=== PATIENT | male | born 1960 | race Caucasian/White ===

== ENCOUNTER 2019-09-03 08:01 | Inpatient (IN) ==
[2019-09-03] MEDS ORDERED: METOPROLOL TARTRATE 5 MG/5 ML VIAL IV STA ×3 (08:20→09:05)
[2019-09-03] MEDS ORDERED: ASPIRIN CHEW 81 MG TABLET PO STA (08:20)
[2019-09-03 08:26] LABS: Basophils % 0.4 % (0.0-0.8); Eosinophils # 0.2 10*3/uL (0.0-0.87); Eosinophils % 1.6 % (0.00-10.9); Hematocrit 51.9 VOL% (42.0-52.0); Hemoglobin 17.7 GM/DL (14.0-18.0); Immature Granulocytes % 0.5 %; Immature Granulocytes Absolute 0.05 #; Lymphocytes # 2.8 10*3/uL (1.4-4.0); Lymphocytes % 29.2 % (21.2-54.2); Mean Corpuscular HGB Conc 34.1 GM/DL (32-36); Mean Corpuscular Volume 88.6 FL (87-102); Mean Platelet Volume 10.5 FL (9.6-12.0); Monocytes % 8.7 % (1.7-12.7); Neutrophils % 59.6 % (38.7-73.9); Platelet Count 274 T/CUMM (130-400); Red Blood Count 5.86 MC/CUMM (3.8-5.5); Red Cell Distribution Width 11.9 % (9.3-17.3); White Blood Count 9.6 T/CUMM (4-12)
[2019-09-03] MEDS ORDERED: ENOXAPARIN 100 MG/ML SYRINGE SUBCUT STA (09:00)
[2019-09-03] MEDS ORDERED: NITROGLYCERIN 2% OINT 1 INCH/GM PACK TOP STA (09:00)
[2019-09-03 09:40] LABS: Bilirubin,Total 0.7 MG/DL (0.2-1.0); Calcium 9.4 MG/DL (8.5-10.1); Osmolality,Calculated 282.3 MOS/KG (273-304); Total Protein 7.6 G/DL (6.4-8.3)
[2019-09-03] MEDS ORDERED: LABETALOL 20 MG/4 ML SYRINGE IV ONE ×2 (09:54→10:42)
[2019-09-03] MEDS ORDERED: LABETALOL 20 MG/4 ML SYRINGE IV STA (09:55)
[2019-09-03] MEDS ORDERED: DIAZEPAM 5 MG TABLET PO ONE (10:09)
[2019-09-03] MEDS ORDERED: POTASSIUM CHLORIDE RIDER 10 MEQ in PREMIX 1 EACH IV PRN (10:09)
[2019-09-03] MEDS ORDERED: MAGNESIUM SULF RIDER 2 GM in PREMIX 1 EACH IV PRN (10:09)
[2019-09-03] MEDS ORDERED: diphenhydrAMINE CAP 25 MG CAPSULE PO ONE (10:09)
[2019-09-03] MEDS ORDERED: MIDAZOLAM 2 MG/2 ML VIAL ONE (10:34)
[2019-09-03] MEDS ORDERED: HYDROmorphone 2 MG/1 ML VIAL ONE (10:34)
[2019-09-03] MEDS ORDERED: diphenhydrAMINE 50 MG/1 ML VIAL ONE (10:40)
[2019-09-03 10:42] LABS: Apearance,Urine CLEAR (Clear); Bilirubin,Urine Negative (Negative); Blood, Urine Negative (Negative); Glucose,Urine (UA) Negative (Negative); Ketones,Urine 20 mg/dL (Negative); Mucus,Urine Occasional /LPF (Occasional); Nitrite,Urine Negative (Negative); Protein,Urine Negative; RBC,Urine 2 /HPF (0-4); Squamous Epithelial Cell,Urine Occasional /HPF (0-10); Urine Color Yellow (Yellow); Urine Specific Gravity 1.021 (1.001-1.035); Urine Urobilinogen < 2.0 EU/DL (0.2-1.0); WBC,Urine 9 /HPF (0-6)
[2019-09-03] MEDS ORDERED: ZALEPLON 5 MG CAPSULE PO PRN (11:22)
[2019-09-03] MEDS ORDERED: NITROGLYCERIN SL 0.4 MG TABLET SL PRN (11:22)
[2019-09-03] MEDS ORDERED: ONDANSETRON 4 MG/2 ML VIAL IV PRN (11:22)
[2019-09-03] MEDS: SODIUM CHLORIDE 0.9% 1,000 ML IV SCH ×2 (12:06→19:47)
[2019-09-03] MEDS: METOPROLOL TARTRATE 50 MG TABLET PO SCH ×2 (12:10→21:37)
[2019-09-03] MEDS: PANTOPRAZOLE 40 MG TABLET PO SCH (12:10)
[2019-09-03] MEDS: ASPIRIN EC 81 MG TABLET PO SCH (12:10)
[2019-09-03 13:06] LABS: CKMB % 4.2 %
[2019-09-03 13:08] LABS: Troponin I 0.848 NG/ML (0.00-0.045)
[2019-09-03 19:52] LABS: CKMB % 4.9 %
[2019-09-03 19:54] LABS: Troponin I 2.15 NG/ML (0.00-0.045)
[2019-09-03] MEDS: ROSUVASTATIN 20 MG TABLET PO SCH (21:37)
[2019-09-04] MEDS: SODIUM CHLORIDE 0.9% 1,000 ML IV SCH ×2 (03:42→12:34)
[2019-09-04 04:44] LABS: Osmolality,Calculated 281.1 MOS/KG (273-304)
[2019-09-04 04:48] LABS: CKMB % 4.4 %; Risk Ratio 6.58; VLDL CHOLESTEROL 25.4 MG/DL
[2019-09-04 04:51] LABS: Troponin I 2.33 NG/ML (0.00-0.045)
[2019-09-04] MEDS: PANTOPRAZOLE 40 MG TABLET PO SCH (08:37)
[2019-09-04] MEDS: METOPROLOL TARTRATE 50 MG TABLET PO SCH ×2 (08:37→21:40)
[2019-09-04] MEDS: ASPIRIN EC 81 MG TABLET PO SCH (08:38)
[2019-09-04] MEDS ORDERED: GLUCAGON 1 MG VIAL IM PRN (08:45)
[2019-09-04] MEDS ORDERED: CEFUROXIME INJ 1,500 MG in SYRINGE 1 EACH IV ONE (08:45)
[2019-09-04] MEDS ORDERED: DEXTROSE 10% 250 ML BAG IV PRN (08:45)
[2019-09-04] MEDS: CHLORHEXIDINE 0.12% ORAL RINSE 60 ML BOTTLE SWISH/SPIT SCH ×2 (10:05→21:40)
[2019-09-04] MEDS: CHLORHEXIDINE 4% SOLN 118 ML BOTTLE TOP SCH ×3 (10:07→21:40)
[2019-09-04 10:22] LABS: ABG Base Excess -1.2 MMOL/L (-2.5-2.5); ABG HCO3 22.1 MMOL/L (20-26); ABG Oxygen Saturation 96.2 % (95-100); ABG PCO2 33.2 MM HG (35-48); ABG PH 7.441 (7.35-7.45); ABG PO2 80.3 MM HG (80-95); ABG TCO2 23.1 MMOL/L (23-27)
[2019-09-04] MEDS ORDERED: NITROGLYCERIN 2% OINT 1 INCH/GM PACK TOP ONE ×2 (11:20→11:22)
[2019-09-04] MEDS ORDERED: hydrALAZINE 20 MG/1 ML VIAL IV PRN (11:22)
[2019-09-04] MEDS: CLORAZEPATE 7.5 MG TABLET PO PRN ×2 (11:41→21:40)
[2019-09-04] MEDS: ROSUVASTATIN 20 MG TABLET PO SCH (21:40)
[2019-09-05] MEDS ORDERED: VANCOMYCIN 1,000 MG VIAL ONE (04:23)
[2019-09-05] MEDS ORDERED: VANCOMYCIN 500 MG VIAL ONE (04:23)
[2019-09-05] MEDS ORDERED: PAPAVERINE 60 MG/2 ML VIAL ONE (04:23)
[2019-09-05] MEDS ORDERED: diphenhydrAMINE CAP 25 MG CAPSULE PO ONE (06:00)
[2019-09-05] MEDS ORDERED: CEFUROXIME INJ 1,500 MG in SYRINGE 1 EACH IV ONE (06:00)
[2019-09-05] MEDS ORDERED: FAMOTIDINE 20 MG TABLET PO ONE (06:00)
[2019-09-05] MEDS ORDERED: DIAZEPAM 5 MG TABLET PO ONE ×2 (06:00→06:02)
[2019-09-05 07:37] LABS: ABG Base Excess -2.2 MMOL/L (-2.5-2.5); ABG HCO3 22.6 MMOL/L (20-26); ABG Oxygen Saturation 99.8 % (95-100); ABG PCO2 41.5 MM HG (35-48); ABG PH 7.356 (7.35-7.45); ABG TCO2 20.1 MMOL/L (23-27); Glucose Heart Surgery 103 MG/DL (74-106); Hematocrit Heart Surgery 43.2 PERCENT (42-52); Hemoglobin Heart Surgery 14.1 G/DL (14.0-18.0); Ionized Calcium Arterial 1.17 MMOL/L (1.21-1.46); PCO2 Patient Temp Arterial 41.5 MMHG; PH Patient Temp Arterial 7.356; Patient Temperature 37 CELCIUS; Potassium Heart/CVR 3.6 MMOL/L (3.5-5.1); Sodium Heart/CVR 139 MMOL/L (135-145)
[2019-09-05 08:04] LABS: Apearance,Urine CLEAR (Clear); Bacteria,Urine Occasional /HPF (Few); Bilirubin,Urine Negative (Negative); Blood, Urine Negative (Negative); Glucose,Urine (UA) Negative (Negative); Ketones,Urine 20 mg/dL (Negative); Mucus,Urine Occasional /LPF (Occasional); Nitrite,Urine Negative (Negative); Protein,Urine Negative; RBC,Urine 2 /HPF (0-4); Squamous Epithelial Cell,Urine Occasional /HPF (0-10); Urine Color Yellow (Yellow); Urine Urobilinogen < 2.0 EU/DL (0.2-1.0); WBC,Urine 1 /HPF (0-6)
[2019-09-05 08:59] LABS: Hematocrit Heart Surgery 29.6 PERCENT (42-52); Hemoglobin Heart Surgery 9.6 G/DL (14.0-18.0); PCO2 Patient Temp Venous 34.4 MM HG; PH Patient Temp Venous 7.414; PO2 Patient Temp Venous 40.5 MM HG; Potassium Heart/CVR 4.6 MMOL/L (3.5-5.1); VBG HCO3 22.5 MEQ/L (24-28); VBG PCO2 37.9 MMHG (41-51); VBG PH 7.385; VBG PO2 46.5 MMHG (17-40)
[2019-09-05] MEDS: PANTOPRAZOLE 40 MG TABLET PO SCH (09:00)
[2019-09-05] MEDS: CHLORHEXIDINE 0.12% ORAL RINSE 60 ML BOTTLE SWISH/SPIT SCH ×2 (09:00→20:56)
[2019-09-05] MEDS: METOPROLOL TARTRATE 50 MG TABLET PO SCH (09:00)
[2019-09-05] MEDS: ASPIRIN EC 81 MG TABLET PO SCH (09:00)
[2019-09-05 09:31] LABS: Hemoglobin Heart Surgery 10.6 G/DL (14.0-18.0); PCO2 Patient Temp Venous 35.7 MM HG; PH Patient Temp Venous 7.448; PO2 Patient Temp Venous 41.9 MM HG; Potassium Heart/CVR 4.1 MMOL/L (3.5-5.1); VBG Base Excess 0.1 MEQ/L (0-4); VBG HCO3 24.9 MEQ/L (24-28); VBG Oxygen Saturation 85.9 %; VBG PCO2 40.7 MMHG (41-51); VBG PH 7.404; VBG PO2 51.7 MMHG (17-40)
[2019-09-05 10:00] LABS: Hematocrit Heart Surgery 33.5 PERCENT (42-52); Hemoglobin Heart Surgery 10.9 G/DL (14.0-18.0); PCO2 Patient Temp Venous 39.2 MM HG; PH Patient Temp Venous 7.409; PO2 Patient Temp Venous 43.9 MM HG; Potassium Heart/CVR 4.2 MMOL/L (3.5-5.1); VBG Base Excess 0.3 MEQ/L (0-4); VBG HCO3 24.4 MEQ/L (24-28); VBG Oxygen Saturation 80.9 %; VBG PCO2 39.2 MMHG (41-51); VBG PH 7.409; VBG PO2 43.9 MMHG (17-40)
[2019-09-05] MEDS ORDERED: SUFentanil 50 MCG/ML AMP ONE (10:32)
[2019-09-05 10:35] LABS: ABG Base Excess -0.4 MMOL/L (-2.5-2.5); ABG HCO3 24.1 MMOL/L (20-26); ABG Oxygen Saturation 99.8 % (95-100); ABG PH 7.416 (7.35-7.45); ABG TCO2 21.4 MMOL/L (23-27); Glucose Heart Surgery 167 MG/DL (74-106); Hematocrit Heart Surgery 33.8 PERCENT (42-52); Hemoglobin Heart Surgery 10.9 G/DL (14.0-18.0); Ionized Calcium Arterial 1.41 MMOL/L (1.21-1.46); PH Patient Temp Arterial 7.416; Patient Temperature 37 CELCIUS; Potassium Heart/CVR 3.5 MMOL/L (3.5-5.1); Sodium Heart/CVR 137 MMOL/L (135-145)
[2019-09-05] MEDS ORDERED: PROTAMINE SULFATE 250 MG/25 ML VIAL IV ONE (10:41)
[2019-09-05] MEDS ORDERED: methylPREDNISolone SOD SUC 1,000 MG/8 ML VIAL ONE (10:41)
[2019-09-05] MEDS ORDERED: FUROSEMIDE 20 MG/2 ML VIAL ONE (10:41)
[2019-09-05] MEDS ORDERED: DEXTROSE 5% KCL 20 MEQ 20 MEQ/1,000 ML BAG IV ONE (10:41)
[2019-09-05] MEDS ORDERED: LIDOCAINE 2% 5 ML VIAL ONE ×2 (10:41→11:09)
[2019-09-05] MEDS ORDERED: MAGNESIUM SULFATE 5 GM/10 ML VIAL IV ONE (10:41)
[2019-09-05] MEDS ORDERED: ALBUMIN 25% 25 GM/100 ML VIAL IV ONE (10:41)
[2019-09-05] MEDS ORDERED: HEPARIN 10,000 UNIT/10 ML VIAL ONE (10:41)
[2019-09-05] MEDS ORDERED: SODIUM BICARBONATE 50 MEQ/50 ML VIAL IV ONE ×2 (10:41→10:51)
[2019-09-05] MEDS ORDERED: POTASSIUM CHLORIDE RIDER 100 ML IV ONE (10:51)
[2019-09-05] MEDS ORDERED: PHENYLEPHRINE DRIP 40 MG/250 ML PREMIX IV ONE (10:51)
[2019-09-05] MEDS ORDERED: NITROPRUSSIDE 50 MG/2 ML VIAL ONE (10:51)
[2019-09-05] MEDS ORDERED: CALCIUM CHLORIDE 1,000 MG/10 ML SYRINGE IV ONE (10:51)
[2019-09-05] MEDS ORDERED: SEVOFLURANE 1 UNIT/15 MINUTE INH ONE (11:08)
[2019-09-05] MEDS ORDERED: SUFentanil 250 MCG/5 ML AMP ONE (11:08)
[2019-09-05] MEDS ORDERED: CALCIUM CHLORIDE 1,000 MG/10 ML VIAL IV ONE (11:09)
[2019-09-05] MEDS ORDERED: ESMOLOL 100 MG/10 ML VIAL IV ONE (11:10)
[2019-09-05] MEDS ORDERED: MIDAZOLAM 10 MG/2 ML VIAL ONE ×2 (11:10)
[2019-09-05] MEDS ORDERED: PHENYLEPHRINE 10 MG/1 ML VIAL IV ONE (11:10)
[2019-09-05] MEDS ORDERED: ePHEDrine 50 MG/ML AMP ONE (11:10)
[2019-09-05] MEDS ORDERED: VECURONIUM 10 MG VIAL IV ONE (11:10)
[2019-09-05] MEDS ORDERED: METOPROLOL TARTRATE 5 MG/5 ML VIAL IV ONE (11:11)
[2019-09-05] MEDS ORDERED: SODIUM CHLORIDE 0.9% 250 ML IV ONE (11:11)
[2019-09-05] MEDS ORDERED: SODIUM CHLORIDE 0.9% 1,000 ML IV ONE (11:11)
[2019-09-05] MEDS ORDERED: LACTATED RINGERS 1,000 ML IV ONE (11:11)
[2019-09-05] MEDS ORDERED: SODIUM CHLORIDE 0.9% 100 ML IV ONE (11:11)
[2019-09-05] MEDS ORDERED: AMINOCAPROIC ACID 5,000 MG/20 ML VIAL ONE (11:11)
[2019-09-05] MEDS ORDERED: ACETAMINOPHEN 650 MG SUPP RECTAL PRN (11:14)
[2019-09-05] MEDS ORDERED: CALCIUM CHLORIDE 1,000 MG/10 ML SYRINGE IV PRN (11:14)
[2019-09-05] MEDS ORDERED: MAGNESIUM SULF RIDER 4 GM in PREMIX 1 EACH IV PRN (11:14)
[2019-09-05] MEDS ORDERED: MIDAZOLAM 2 MG/2 ML VIAL IV PRN (11:14)
[2019-09-05] MEDS ORDERED: MORPHINE 10 MG/1 ML VIAL IV PRN (11:14)
[2019-09-05] MEDS ORDERED: PHENYLEPHRINE DRIP 40 MG/250 ML PREMIX IV PRN (11:14)
[2019-09-05] MEDS ORDERED: MAGNESIUM SULF RIDER 2 GM in PREMIX 1 EACH IV PRN (11:14)
[2019-09-05] MEDS ORDERED: VECURONIUM 10 MG VIAL IV PRN ×2 (11:14)
[2019-09-05] MEDS ORDERED: MIDAZOLAM 10 MG/2 ML VIAL IV PRN (11:14)
[2019-09-05] MEDS ORDERED: DEXTROSE 10% 250 ML BAG IV PRN ×2 (11:14)
[2019-09-05] MEDS ORDERED: CHLORHEXIDINE 4% SOLN 118 ML BOTTLE TOP PRN (11:14)
[2019-09-05] MEDS ORDERED: SODIUM CHLORIDE 0.45% 1,000 ML IV SCH ×2 (11:14)
[2019-09-05] MEDS ORDERED: INSULIN REGULAR 100 UNIT/ML IV ONE (11:14)
[2019-09-05] MEDS ORDERED: NITROPRUSSIDE 100 MG in DEXTROSE 5% 250 ML IV PRN (11:14)
[2019-09-05] MEDS ORDERED: HEPARIN/NACL 0.9% 2 UNITS/ML 500 ML IV ONE (11:15)
[2019-09-05] MEDS: INSULIN REGULAR DRIP 100 ML IV SCH ×2 (11:15→15:05)
[2019-09-05 11:32] LABS: ABG Base Excess 0.8 MMOL/L (-2.5-2.5); ABG HCO3 25.1 MMOL/L (20-26); ABG Oxygen Saturation 95.3 % (95-100); ABG PCO2 42.5 MM HG (35-48); ABG PH 7.393 (7.35-7.45); ABG PO2 75.5 MM HG (80-95); ABG TCO2 22.7 MMOL/L (23-27); Glucose Heart Surgery 129 MG/DL (74-106); Hematocrit Heart Surgery 40.2 PERCENT (42-52); Hemoglobin Heart Surgery 13.1 G/DL (14.0-18.0); Potassium Heart/CVR 3.4 MMOL/L (3.5-5.1)
[2019-09-05 11:43] LABS: Basophils % 0.2 % (0.0-0.8); Eosinophils # 0.1 10*3/uL (0.0-0.87); Eosinophils % 0.8 % (0.00-10.9); Hematocrit 37.7 VOL% (42.0-52.0); Hemoglobin 12.7 GM/DL (14.0-18.0); Immature Granulocytes % 1.3 %; Immature Granulocytes Absolute 0.14 #; Lymphocytes % 9.7 % (21.2-54.2); Mean Corpuscular HGB Conc 33.7 GM/DL (32-36); Mean Platelet Volume 10.7 FL (9.6-12.0); Monocytes % 5.3 % (1.7-12.7); Neutrophils % 82.7 % (38.7-73.9); Platelet Count 185 T/CUMM (130-400); Red Blood Count 4.19 MC/CUMM (3.8-5.5); Red Cell Distribution Width 12.1 % (9.3-17.3); White Blood Count 10.6 T/CUMM (4-12)
[2019-09-05] MEDS: POTASSIUM CHLORIDE RIDER 20 MEQ in PREMIX 1 EACH IV PRN ×7 (11:50→21:30)
[2019-09-05 11:52] LABS: PT Patient Result 11.2 SECS (9.6-12.2); Partial Thromboplastin Time 27.9 SECS (20.8-36.0)
[2019-09-05 12:04] LABS: CKMB % 4.5 %
[2019-09-05 12:06] LABS: Troponin I 3.01 NG/ML (0.00-0.045)
[2019-09-05 12:07] LABS: Albumin 3.1 G/DL (3.4-5.0); Calcium 9.6 MG/DL (8.5-10.1); Osmolality,Calculated 279.4 MOS/KG (273-304); Total Protein 6.2 G/DL (6.4-8.3)
[2019-09-05] MEDS: ALBUMIN 5% 12.5 GM in PREMIX 1 EACH IV PRN ×4 (12:24→14:40)
[2019-09-05] MEDS: MORPHINE 4 MG/1 ML VIAL IV PRN ×3 (12:59→19:26)
[2019-09-05 13:09] LABS: ABG Base Excess -1.8 MMOL/L (-2.5-2.5); ABG HCO3 22.9 MMOL/L (20-26); ABG Oxygen Saturation 98.3 % (95-100); ABG PCO2 40.5 MM HG (35-48); ABG PH 7.369 (7.35-7.45); ABG TCO2 20.5 MMOL/L (23-27); Glucose Heart Surgery 147 MG/DL (74-106); Hematocrit Heart Surgery 39.9 PERCENT (42-52); Potassium Heart/CVR 4.1 MMOL/L (3.5-5.1)
[2019-09-05 14:12] LABS: ABG Base Excess -3.2 MMOL/L (-2.5-2.5); ABG HCO3 21.7 MMOL/L (20-26); ABG PCO2 41.5 MM HG (35-48); ABG TCO2 19.8 MMOL/L (23-27); Glucose Heart Surgery 198 MG/DL (74-106); Hematocrit Heart Surgery 38.9 PERCENT (42-52); Hemoglobin Heart Surgery 12.7 G/DL (14.0-18.0); Potassium Heart/CVR 3.9 MMOL/L (3.5-5.1)
[2019-09-05] MEDS: POTASSIUM CHLORIDE RIDER 10 MEQ in PREMIX 1 EACH IV PRN ×2 (14:55→18:48)
[2019-09-05] MEDS: KETOROLAC 30 MG/1 ML VIAL IV SCH ×2 (16:10→22:12)
[2019-09-05 16:20] LABS: ABG Base Excess -4.3 MMOL/L (-2.5-2.5); ABG HCO3 20.9 MMOL/L (20-26); ABG Oxygen Saturation 98.8 % (95-100); ABG PCO2 34.8 MM HG (35-48); ABG PH 7.373 (7.35-7.45); Glucose Heart Surgery 234 MG/DL (74-106); Hematocrit Heart Surgery 36.7 PERCENT (42-52); Hemoglobin Heart Surgery 11.9 G/DL (14.0-18.0); Potassium Heart/CVR 3.9 MMOL/L (3.5-5.1)
[2019-09-05] MEDS: ONDANSETRON 4 MG/2 ML VIAL IV PRN ×2 (16:22→20:19)
[2019-09-05] MEDS: INSULIN REGULAR 100 UNIT/ML IV PRN ×2 (16:29→18:04)
[2019-09-05] MEDS: LACTATED RINGERS 250 ML IV PRN ×3 (16:50→17:40)
[2019-09-05 17:59] LABS: ABG Base Excess -2.3 MMOL/L (-2.5-2.5); ABG HCO3 22.5 MMOL/L (20-26); ABG Oxygen Saturation 99.7 % (95-100); ABG PH 7.479 (7.35-7.45); ABG TCO2 17.9 MMOL/L (23-27); Glucose Heart Surgery 210 MG/DL (74-106); Hematocrit Heart Surgery 34.6 PERCENT (42-52); Hemoglobin Heart Surgery 11.2 G/DL (14.0-18.0); Potassium Heart/CVR 3.7 MMOL/L (3.5-5.1)
[2019-09-05] MEDS: CEFUROXIME INJ 1,500 MG in SYRINGE 1 EACH IV SCH (18:10)
[2019-09-05 18:59] LABS: ABG Base Excess -3.5 MMOL/L (-2.5-2.5); ABG HCO3 21.5 MMOL/L (20-26); ABG PH 7.537 (7.35-7.45); ABG TCO2 15.4 MMOL/L (23-27); Glucose Heart Surgery 181 MG/DL (74-106); Hematocrit Heart Surgery 35.5 PERCENT (42-52); Hemoglobin Heart Surgery 11.5 G/DL (14.0-18.0); Potassium Heart/CVR 3.7 MMOL/L (3.5-5.1)
[2019-09-05 19:01] LABS: ABG PCO2 20.5 MM HG (35-48)
[2019-09-05 20:31] LABS: ABG Base Excess -3.7 MMOL/L (-2.5-2.5); ABG HCO3 21.3 MMOL/L (20-26); ABG Oxygen Saturation 95.2 % (95-100); ABG PCO2 33.4 MM HG (35-48); ABG PH 7.394 (7.35-7.45); ABG PO2 73.9 MM HG (80-95); ABG TCO2 18.2 MMOL/L (23-27); Glucose Heart Surgery 162 MG/DL (74-106); Hematocrit Heart Surgery 35.7 PERCENT (42-52); Hemoglobin Heart Surgery 11.6 G/DL (14.0-18.0); Potassium Heart/CVR 3.4 MMOL/L (3.5-5.1)
[2019-09-05] MEDS ORDERED: PROMETHAZINE INJ 12.5 MG in SODIUM CHLORIDE 0.9% 50 ML IV ONE (20:45)
[2019-09-05] MEDS ORDERED: METOCLOPRAMIDE 10 MG/2 ML VIAL IV ONE (20:45)
[2019-09-05 20:51] LABS: CKMB % 3.9 %
[2019-09-05 20:52] LABS: Troponin I 3.01 NG/ML (0.00-0.045)
[2019-09-05 23:02] LABS: ABG Base Excess -1.8 MMOL/L (-2.5-2.5); ABG HCO3 22.9 MMOL/L (20-26); ABG Oxygen Saturation 98.6 % (95-100); ABG PCO2 38.1 MM HG (35-48); ABG PH 7.387 (7.35-7.45); ABG TCO2 20.5 MMOL/L (23-27); Glucose Heart Surgery 117 MG/DL (74-106); Hemoglobin Heart Surgery 11.4 G/DL (14.0-18.0); Potassium Heart/CVR 4.1 MMOL/L (3.5-5.1)
[2019-09-06] MEDS: INSULIN REGULAR 100 UNIT/ML SUBCUT SCH ×2 (04:21→08:00)
[2019-09-06] MEDS: KETOROLAC 30 MG/1 ML VIAL IV SCH ×2 (04:21→09:43)
[2019-09-06 05:12] LABS: ABG Base Excess -0.1 MMOL/L (-2.5-2.5); ABG HCO3 23.7 MMOL/L (20-26); ABG Oxygen Saturation 97.1 % (95-100); ABG PCO2 35.5 MM HG (35-48); ABG PH 7.442 (7.35-7.45); ABG PO2 97.1 MM HG (80-95); ABG TCO2 24.8 MMOL/L (23-27); Glucose Heart Surgery 140 MG/DL (74-106); Hemoglobin Heart Surgery 11.8 G/DL (14.0-18.0)
[2019-09-06 05:19] LABS: Basophils % 0.1 % (0.0-0.8); Hematocrit 33.1 VOL% (42.0-52.0); Hemoglobin 11.1 GM/DL (14.0-18.0); Immature Granulocytes % 0.6 %; Lymphocytes # 0.8 10*3/uL (1.4-4.0); Mean Corpuscular HGB Conc 33.5 GM/DL (32-36); Mean Corpuscular Volume 91.4 FL (87-102); Mean Platelet Volume 11.2 FL (9.6-12.0); Monocytes % 6.4 % (1.7-12.7); Neutrophils % 87.9 % (38.7-73.9); Platelet Count 173 T/CUMM (130-400); Red Blood Count 3.62 MC/CUMM (3.8-5.5); Red Cell Distribution Width 12.1 % (9.3-17.3); White Blood Count 16.8 T/CUMM (4-12)
[2019-09-06 05:49] LABS: Albumin 3.3 G/DL (3.4-5.0); Bilirubin,Direct 0.19 MG/DL (0.0-0.20); Bilirubin,Total 0.9 MG/DL (0.2-1.0); Calcium 8.5 MG/DL (8.5-10.1); Osmolality,Calculated 284.1 MOS/KG (273-304); Total Protein 5.5 G/DL (6.4-8.3)
[2019-09-06 05:51] LABS: CKMB % 6.7 %
[2019-09-06] MEDS: CEFUROXIME INJ 1,500 MG in SYRINGE 1 EACH IV SCH ×2 (06:15→17:55)
[2019-09-06 09:10] LABS: ABG Base Excess 1.1 MMOL/L (-2.5-2.5); ABG HCO3 25.3 MMOL/L (20-26); ABG Oxygen Saturation 97.9 % (95-100); ABG PCO2 38.5 MM HG (35-48); ABG PH 7.426 (7.35-7.45); ABG PO2 91.8 MM HG (80-95); ABG TCO2 22.4 MMOL/L (23-27); Glucose Heart Surgery 139 MG/DL (74-106); Hematocrit Heart Surgery 36.3 PERCENT (42-52); Hemoglobin Heart Surgery 11.8 G/DL (14.0-18.0); Potassium Heart/CVR 3.7 MMOL/L (3.5-5.1)
[2019-09-06] MEDS: CHLORHEXIDINE 0.12% ORAL RINSE 60 ML BOTTLE SWISH/SPIT SCH ×2 (09:10→20:32)
[2019-09-06] MEDS ORDERED: GLUCAGON 1 MG VIAL IM PRN (10:38)
[2019-09-06] MEDS ORDERED: KETOROLAC 30 MG/1 ML VIAL IV PRN (10:38)
[2019-09-06] MEDS ORDERED: ACETAMINOPHEN 325 MG TABLET PO PRN (10:38)
[2019-09-06] MEDS ORDERED: MAGNESIUM SULF RIDER 2 GM in PREMIX 1 EACH IV PRN (10:38)
[2019-09-06] MEDS ORDERED: DEXTROSE 50% 25 GM/50 ML VIAL IV PRN (10:38)
[2019-09-06] MEDS ORDERED: ALUMINUM/MAGNES/SIMETH MAX STR 30 ML UDCUP PO PRN (10:38)
[2019-09-06] MEDS ORDERED: ONDANSETRON 4 MG/2 ML VIAL IV PRN (10:38)
[2019-09-06] MEDS ORDERED: SODIUM CHLOR 0.45% KCL 20 MEQ 20 MEQ/1,000 ML BAG IV SCH (10:38)
[2019-09-06] MEDS ORDERED: MAGNESIUM SULF RIDER 4 GM in PREMIX 1 EACH IV PRN (10:38)
[2019-09-06] MEDS ORDERED: MAGNESIUM HYDROXIDE SUSP 30 ML UDCUP PO PRN (10:38)
[2019-09-06 14:49] LABS: CKMB % 6.5 %
[2019-09-06] MEDS ORDERED: SODIUM CHLORIDE 0.9% 100 ML IV ONE (17:45)
[2019-09-06] MEDS: SODIUM CHLORIDE 0.9% 1,000 ML IV SCH (19:38)
[2019-09-07] MEDS: oxyCODONE/ACETAMINOPHEN 5-325 MG TABLET PO PRN ×4 (03:26→20:13)
[2019-09-07 05:35] LABS: Basophils % 0.1 % (0.0-0.8); Hematocrit 33.2 VOL% (42.0-52.0); Hemoglobin 11.1 GM/DL (14.0-18.0); Immature Granulocytes % 0.5 %; Immature Granulocytes Absolute 0.08 #; Lymphocytes # 1.6 10*3/uL (1.4-4.0); Lymphocytes % 10.1 % (21.2-54.2); Mean Corpuscular HGB Conc 33.4 GM/DL (32-36); Mean Corpuscular Volume 92.2 FL (87-102); Mean Platelet Volume 11.9 FL (9.6-12.0); Monocytes % 9.4 % (1.7-12.7); Neutrophils % 79.9 % (38.7-73.9); Platelet Count 184 T/CUMM (130-400); Red Cell Distribution Width 12.3 % (9.3-17.3); White Blood Count 15.5 T/CUMM (4-12)
[2019-09-07] MEDS ORDERED: FUROSEMIDE 40 MG/4 ML VIAL IV ONE (06:00)
[2019-09-07 06:01] LABS: Bilirubin,Direct 0.18 MG/DL (0.0-0.20); Bilirubin,Indirect 1.1 MG/DL (0.0-1.0); Bilirubin,Total 1.3 MG/DL (0.2-1.0); CKMB % 3.3 %; Calcium 8.6 MG/DL (8.5-10.1); Osmolality,Calculated 280.4 MOS/KG (273-304); Total Protein 6.3 G/DL (6.4-8.3)
[2019-09-07 06:21] LABS: Troponin I 8.01 NG/ML (0.00-0.045)
[2019-09-07] MEDS: DOCUSATE SODIUM 100 MG CAPSULE PO SCH (08:28)
[2019-09-07] MEDS: PANTOPRAZOLE 40 MG TABLET PO SCH (08:28)
[2019-09-07] MEDS: CHLORHEXIDINE 0.12% ORAL RINSE 60 ML BOTTLE SWISH/SPIT SCH ×2 (08:28→20:13)
[2019-09-07] MEDS: FERROUS SULFATE 325 MG TABLET PO SCH (08:28)
[2019-09-07] MEDS ORDERED: METOPROLOL TARTRATE 25 MG TABLET PO SCH (09:00)
[2019-09-07 09:18] LABS: Troponin I 5.09 NG/ML (0.00-0.045)
[2019-09-07] MEDS: METOPROLOL TARTRATE 25 MG TABLET PO SCH ×2 (09:22→20:14)
[2019-09-07 09:30] LABS: Troponin I 8.77 NG/ML (0.00-0.045)
[2019-09-08] MEDS: oxyCODONE/ACETAMINOPHEN 5-325 MG TABLET PO PRN ×2 (03:32→20:40)
[2019-09-08 04:57] LABS: Basophils % 0.1 % (0.0-0.8); Eosinophils % 0.2 % (0.00-10.9); Hematocrit 36.6 VOL% (42.0-52.0); Hemoglobin 12.5 GM/DL (14.0-18.0); Immature Granulocytes % 0.3 %; Immature Granulocytes Absolute 0.04 #; Lymphocytes # 1.5 10*3/uL (1.4-4.0); Lymphocytes % 12.9 % (21.2-54.2); Mean Corpuscular HGB Conc 34.2 GM/DL (32-36); Mean Corpuscular Volume 90.1 FL (87-102); Mean Platelet Volume 11.2 FL (9.6-12.0); Monocytes % 8.6 % (1.7-12.7); Neutrophils % 77.9 % (38.7-73.9); Platelet Count 225 T/CUMM (130-400); Red Blood Count 4.06 MC/CUMM (3.8-5.5); White Blood Count 11.9 T/CUMM (4-12)
[2019-09-08 05:20] LABS: Alanine Aminotransferase 34 U/L (16-61); Albumin 3.1 G/DL (3.4-5.0); Alkaline Phosphatase 60 U/L (45-117); Aspartate Amino Transferase 38 U/L (0-37); Bilirubin,Indirect 0.8 MG/DL (0.0-1.0); Blood Urea Nitrogen 19 MG/DL (7-18); Calcium 8.8 MG/DL (8.5-10.1); Estimated Glom Filtration Rate 128 ML/MIN; Glucose 127 MG/DL (74-106); Osmolality,Calculated 276.8 MOS/KG (273-304)
[2019-09-08] MEDS: POTASSIUM CHLORIDE 20 MEQ TABLET PO PRN ×3 (06:14→13:08)
[2019-09-08] MEDS: DOCUSATE SODIUM 100 MG CAPSULE PO SCH (08:01)
[2019-09-08] MEDS: METOPROLOL TARTRATE 25 MG TABLET PO SCH ×2 (08:01→20:42)
[2019-09-08] MEDS: PANTOPRAZOLE 40 MG TABLET PO SCH (08:01)
[2019-09-08] MEDS: FERROUS SULFATE 325 MG TABLET PO SCH (08:01)
[2019-09-08] MEDS: CHLORHEXIDINE 0.12% ORAL RINSE 60 ML BOTTLE SWISH/SPIT SCH ×2 (08:03→20:42)
[2019-09-08] MEDS: ASPIRIN EC 81 MG TABLET PO SCH (09:10)
[2019-09-08] MEDS: ROSUVASTATIN 20 MG TABLET PO SCH (09:27)
[2019-09-09 05:20] LABS: Calcium 9.2 MG/DL (8.5-10.1); Osmolality,Calculated 282.4 MOS/KG (273-304)
[2019-09-09] MEDS: FERROUS SULFATE 325 MG TABLET PO SCH (09:45)
[2019-09-09] MEDS: DOCUSATE SODIUM 100 MG CAPSULE PO SCH (09:45)
[2019-09-09] MEDS: ASPIRIN EC 81 MG TABLET PO SCH (09:46)
[2019-09-09] MEDS: PANTOPRAZOLE 40 MG TABLET PO SCH (09:46)
[2019-09-09] MEDS: METOPROLOL TARTRATE 25 MG TABLET PO SCH ×2 (09:46→20:57)
[2019-09-09] MEDS: oxyCODONE/ACETAMINOPHEN 5-325 MG TABLET PO PRN ×2 (09:48→20:58)
[2019-09-09] MEDS: CHLORHEXIDINE 0.12% ORAL RINSE 60 ML BOTTLE SWISH/SPIT SCH ×2 (09:52→21:02)
[2019-09-09] MEDS: ROSUVASTATIN 20 MG TABLET PO SCH ×2 (09:54→20:58)
[2019-09-10 03:43] LABS: Basophils % 0.3 % (0.0-0.8); Eosinophils # 0.1 10*3/uL (0.0-0.87); Eosinophils % 1.3 % (0.00-10.9); Hematocrit 35.7 VOL% (42.0-52.0); Hemoglobin 12.3 GM/DL (14.0-18.0); Immature Granulocytes Absolute 0.09 #; Lymphocytes % 22.5 % (21.2-54.2); Mean Corpuscular HGB Conc 34.5 GM/DL (32-36); Mean Corpuscular Volume 88.4 FL (87-102); Mean Platelet Volume 10.5 FL (9.6-12.0); Monocytes % 11.7 % (1.7-12.7); Neutrophils % 63.2 % (38.7-73.9); Platelet Count 281 T/CUMM (130-400); Red Blood Count 4.04 MC/CUMM (3.8-5.5); Red Cell Distribution Width 11.8 % (9.3-17.3); White Blood Count 8.7 T/CUMM (4-12)
[2019-09-10 04:04] LABS: Alanine Aminotransferase 33 U/L (16-61); Albumin 2.6 G/DL (3.4-5.0); Alkaline Phosphatase 70 U/L (45-117); Aspartate Amino Transferase 18 U/L (0-37); Bilirubin,Indirect 0.4 MG/DL (0.0-1.0); Blood Urea Nitrogen 23 MG/DL (7-18); Estimated Glom Filtration Rate 126 ML/MIN; Glucose 102 MG/DL (74-106); Osmolality,Calculated 280.5 MOS/KG (273-304); Total Protein 6.5 G/DL (6.4-8.3)
[2019-09-10] MEDS ORDERED: MAGNESIUM HYDROXIDE SUSP 30 ML UDCUP PO ONE (07:47)
[2019-09-10] MEDS: PANTOPRAZOLE 40 MG TABLET PO SCH (08:54)
[2019-09-10] MEDS: FERROUS SULFATE 325 MG TABLET PO SCH (08:54)
[2019-09-10] MEDS: ROSUVASTATIN 20 MG TABLET PO SCH (08:54)
[2019-09-10] MEDS: DOCUSATE SODIUM 100 MG CAPSULE PO SCH ×2 (08:54→08:57)
[2019-09-10] MEDS: POTASSIUM CHLORIDE 20 MEQ TABLET PO PRN ×3 (08:55→11:50)
[2019-09-10] MEDS: METOPROLOL SUCCINATE XL 50 MG TABLET PO SCH (08:55)
[2019-09-10] MEDS: ASPIRIN EC 81 MG TABLET PO SCH (08:55)
[2019-09-10] MEDS: CHLORHEXIDINE 0.12% ORAL RINSE 60 ML BOTTLE SWISH/SPIT SCH ×2 (08:57→20:48)
[2019-09-10] MEDS ORDERED: traMADol 50 MG TABLET PO PRN (12:16)
[2019-09-10] MEDS: ZALEPLON 5 MG CAPSULE PO PRN ×2 (20:48→20:49)
[2019-09-11 04:34] LABS: Basophils % 0.3 % (0.0-0.8); Eosinophils # 0.1 10*3/uL (0.0-0.87); Eosinophils % 1.2 % (0.00-10.9); Hematocrit 38.9 VOL% (42.0-52.0); Hemoglobin 13.3 GM/DL (14.0-18.0); Immature Granulocytes Absolute 0.11 #; Lymphocytes # 2.5 10*3/uL (1.4-4.0); Lymphocytes % 21.9 % (21.2-54.2); Mean Corpuscular HGB Conc 34.2 GM/DL (32-36); Mean Corpuscular Volume 89.2 FL (87-102); Mean Platelet Volume 10.4 FL (9.6-12.0); Monocytes % 8.6 % (1.7-12.7); Platelet Count 342 T/CUMM (130-400); Red Blood Count 4.36 MC/CUMM (3.8-5.5); Red Cell Distribution Width 11.8 % (9.3-17.3); White Blood Count 11.6 T/CUMM (4-12)
[2019-09-11 05:05] LABS: Alanine Aminotransferase 35 U/L (16-61); Alkaline Phosphatase 81 U/L (45-117); Aspartate Amino Transferase 19 U/L (0-37); Bilirubin,Indirect 0.5 MG/DL (0.0-1.0); Blood Urea Nitrogen 18 MG/DL (7-18); Calcium 9.2 MG/DL (8.5-10.1); Estimated Glom Filtration Rate 119 ML/MIN; Glucose 92 MG/DL (74-106); Osmolality,Calculated 276.7 MOS/KG (273-304); Total Protein 7.1 G/DL (6.4-8.3)
[2019-09-11] MEDS: POTASSIUM CHLORIDE 20 MEQ TABLET PO PRN ×2 (05:20→09:02)
[2019-09-11 07:41] VITALS: BP 112/82
[2019-09-11] MEDS: DOCUSATE SODIUM 100 MG CAPSULE PO SCH ×2 (08:38→09:03)
[2019-09-11] MEDS: FERROUS SULFATE 325 MG TABLET PO SCH (09:02)
[2019-09-11] MEDS: ROSUVASTATIN 20 MG TABLET PO SCH (09:03)
[2019-09-11] MEDS: CHLORHEXIDINE 0.12% ORAL RINSE 60 ML BOTTLE SWISH/SPIT SCH (09:03)
[2019-09-11] MEDS: ASPIRIN EC 81 MG TABLET PO SCH (09:03)
[2019-09-11] MEDS: PANTOPRAZOLE 40 MG TABLET PO SCH (09:03)
[2019-09-11] MEDS: METOPROLOL SUCCINATE XL 50 MG TABLET PO SCH (09:04)
== END 2019-09-11 11:28 | disposition home health service (06) | DRG 234 ==
LOC: N.ED 08:01 → N.EDINP 08:01 → N.TELEN 11:37 → N.TELES 09-04 19:59 → N.CVR 09-05 10:43 → N.TELEN 09-06 13:50 → N.TELES 09-08 09:35
PROVIDERS: ADMIT Internal Medicine Cardiovascular Disease; ATTEND Internal Medicine Cardiovascular Disease